=== PATIENT | female | born 1995 | race Caucasian/White ===

== ENCOUNTER 2017-02-20 15:45 | Emergency (ER) | payer MEDICAID ==
[~2017-02-20] VITALS: Ht 157.5 cm; Wt 70.0 kg
[2017-02-20 15:45] VITALS: BP 137/88; PULSE 98; RESP 18; TEMP 98.4; O2SAT 100
[~2017-02-20 15:45] MED LIST: AMOX875 PO
--- NOTE | 2017-02-20 15:55 | PD ---
Physical Exam Time Seen by Provider: 15:54 Narrative 21yo F c/o dysuria, urgency and frequency. Also c/o vaginal dc and foul odor. LMP January 23. Balta contraception use. Denies fever, vomiting. Patient seen in triage. Awaiting bed placement. VS reviewed. Data Data Last Documented VS Vital Signs Date Time Temp Pulse Resp B/P Pulse Ox O2 Delivery O2 Flow Rate FiO2 02/20/17 15:45 98.4 98 18 137/88 100 MDM Supervised Visit with NANCY: Debra Chicas February 20, 2017 15:55
[2017-02-20 16:25] LABS: BLOOD, URINE NEG (NEG); GLUCOSE,URINE NEG (NEG); KETONE, URINE NEG (NEG); NITRITE,URINE NEG (NEG); PH, URINE 7.5 (5.0-8.5); SQUAMOUS EPITHELIAL CELL URINE <1 /hpf (0-5); URINE COLOR LIGHT-YELLOW (YELLW/STRAW)
[2017-02-20 16:34] LABS: COMMENT (UR) CULT NOT INDICATED; CULTURE IF INDICATED CULT NOT INDICATED
== END 2017-02-20 17:30 | disposition left against medical advice (07) ==
LOC: NED 15:45
DX: R30.0 Dysuria (principal); R39.15 Urgency of urination; R35.0 Frequency of micturition; N89.8 Other specified noninflammatory disorders of vagina
CPT/HCPCS: 81001; 84703; 99283

== ENCOUNTER 2017-05-26 18:20 | Emergency (ER) | payer MEDICAID ==
[~2017-05-26] VITALS: Ht 149.9 cm; Wt 68.0 kg
[2017-05-26 18:22] VITALS: BP 105/60; PULSE 82; RESP 20; TEMP 97.3; O2SAT 98
--- NOTE | 2017-05-26 20:07 | PD ---
Physical Exam Date Seen by Provider: May 26, 2017 Time Seen by Provider: 20:04 Narrative 22 y/o female with Hx Opiate abuse and 10 week . Requesting medical clearance for Detox. No Current medical complaints. No suicidal or Homocidal thoughts. Labs ordered. Vital Signs reviewed. Patient is Stable and awaiting Bed Placement. Data Data Last Documented VS Vital Signs Date Time Temp Pulse Resp B/P (MAP) Pulse Ox O2 Delivery O2 Flow Rate FiO2 05/26/17 18:22 97.3 82 20 105/60 (75) 98 Room Air [facility] Medical Record Reviewed: Yes Supervised Visit with NANCY: Yes Condition: Stable Tayo Kiran May 26, 2017 20:07
[2017-05-26] MEDS ORDERED: ZOLO25TA PO (20:48)
[2017-05-26] MEDS ORDERED: DIPH25CA PO (21:42)
--- NOTE | 2017-05-26 21:44 | PD ---
HPI Chief Complaint: Medical Clearance Time Seen by Provider: 20:21 Travel History International Travel<30 days: No Contact w/Intl Traveler<30days: No Traveled to known affect area: No History of Present Illness HPI 22-year-old 2 para 1 last menstruation 12 weeks ago, known to be 10 weeks , arrives stating she wants to undergo opioid detox. She was at [facility] where she offered the same complaint and was advised to come here under the impression that we would admit her for opioid withdrawal. She has been taking Dilaudid and Percocet, inhaling them, for the past 7 months. She has been intermittently abusing opioids for 5 years or so. She has no vaginal bleeding or abdominal pain. She has no thoughts of harming herself and others. She denies drug use otherwise. 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 [facility] Past Medical History Asthma: Yes Tetanus Vaccination: Unknown Influenza Vaccination: No ?: LMP: March : 1 : 1 Social History Alcohol Use: No Tobacco Use: No Substance Use: Yes (PERCOSET, DILAUDID) Allergies-Medications (Allergen,Severity, Reaction): Coded Allergies: No Known Allergies (Unverified , 05/26/17) Reported Meds & Prescriptions Reported Meds & Active Scripts Active Reported Zoloft (Sertraline HCl) 25 Mg Tab 25 Mg PO DAILY Review of Systems Except as stated in HPI: all other systems reviewed are Neg Genitourinary: No: Discharge, Vaginal Bleeding Psychiatric: Positive: Substance Abuse Physical Exam Narrative GENERAL: 22 F, WNWD, pleasant SKIN: Warm and dry. HEAD: Atraumatic. Normocephalic. EYES: Pupils equal and round. No scleral icterus. No injection or drainage. ENT: No nasal bleeding or discharge. Mucous membranes pink and moist. NECK: Trachea midline. No JVD. CARDIOVASCULAR: Regular rate and rhythm. RESPIRATORY: No accessory muscle use. Clear to auscultation. Breath sounds equal bilaterally. GASTROINTESTINAL: Abdomen soft, non-tender, nondistended. Hepatic and splenic margins not palpable. MUSCULOSKELETAL: Extremities without clubbing, cyanosis, or edema. No obvious deformities. NEUROLOGICAL: Awake and alert. No obvious cranial nerve deficits. Motor grossly within normal limits. Five out of 5 muscle strength in the arms and legs. Normal speech. PSYCHIATRIC: Appropriate mood and affect; insight and judgment normal. Data Data Last Documented VS Vital Signs Date Time Temp Pulse Resp B/P (MAP) Pulse Ox O2 Delivery O2 Flow Rate FiO2 05/26/17 18:22 97.3 82 20 105/60 (75) 98 Room Air vs reviewed Orders Orders Complete Blood Count With Diff (05/26/17 20:08) Comprehensive Metabolic Panel (05/26/17 20:08) Urinalysis - C+S If Indicated (05/26/17 20:08) Beta Hcg (Quant/Titer) (05/26/17 20:08) Drug Screen, Random Urine (05/26/17 20:08) Alcohol (Ethanol) (05/26/17 20:08) Labs Laboratory Tests Test 05/26/17 20:50 [facility] Medical Decision Making Medical Screen Exam Complete: Yes Emergency Medical Condition: Yes Medical Record Reviewed: Yes Differential Diagnosis Opioid withdrawal, opiate dependence, intrauterine Narrative Course Unfortunately the resources are unavailable to admit the patient under a diagnoses of opiate withdrawal or opioid detox. We discussed the expected withdrawal process. Local provider for high-risk information provided. Patient verbalized understanding. She has no psychiatric complaints such suicidal ideation or homicidal ideation or hallucination. She simply wants to stop taking opioids. Diagnosis Primary Impression: Opioid dependence Qualified Codes: F11.29 - Opioid dependence with unspecified opioid-induced disorder Additional Impression: Qualified Codes: Z3A.10 - 10 weeks gestation of Referrals: Richa Padilla MD 2 days Additional Instructions: You have a choice when it comes to health care, and we are glad that you chose [facility]. Hopefully, we have met your expectations on today's visit. You are welcome to return to [facility] at any time, as we are committed to meeting the health care needs of our community. Med/Other Pt SpecificInfo: Prescription(s) given Scripts Diphenhydramine (Diphenhydramine) 25 Mg Cap 25 MG PO Q12H Y for WITHDRAWAL, #15 CAP 0 Refills Prov: Parviz Bryan MD 05/26/17 Disposition: 01 DISCHARGE HOME Condition: Stable Parviz Bryan MD May 26, 2017 21:44
[2017-05-26 21:45] LABS: BLOOD, URINE NEG (NEG); GLUCOSE,URINE NEG (NEG); KETONE, URINE NEG (NEG); NITRITE,URINE NEG (NEG); PH, URINE 6.5 (5.0-8.5); SQUAMOUS EPITHELIAL CELL URINE <1 /hpf (0-5); URINE COLOR LIGHT-YELLOW (YELLW/STRAW)
[2017-05-26 21:46] LABS: COMMENT (UR) CULT NOT INDICATED; CULTURE IF INDICATED CULT NOT INDICATED
[2017-05-26 21:48] LABS: AUTOMATED NEUTROPHIL # 8.7 TH/MM3 (1.8-7.7); BASOPHIL % 0.2 % (0.0-2.0); EOSINOPHIL # 0.1 TH/MM3 (0-0.4); EOSINOPHIL % 0.6 % (0.0-4.0); HEMATOCRIT 40.6 % (35.0-46.0); HEMO FLAGS DIFF FINAL; LYMPHOCYTE # 3.1 TH/MM3 (1.0-4.8); MEAN CELL VOLUME 95.1 FL (80.0-100.0); MEAN CORPUSCULAR HEMOGLOBIN 31.8 PG (27.0-34.0); MEAN CORPUSCULAR HGB CONC 33.4 % (32.0-36.0); MONO % 7.4 % (0.0-8.0); NEUT % 67.8 % (16.0-70.0); PLATELET COUNT 291 TH/MM3 (150-450); RED BLOOD COUNT 4.27 MIL/MM3 (4.00-5.30); RED CELL DISTRIBUTION WIDTH 12.6 % (11.6-17.2); WHITE BLOOD COUNT 12.8 TH/MM3 (4.0-11.0)
[2017-05-26 22:08] LABS: ANION GAP 11 MEQ/L (5-15); AST (GOT) 45 U/L (15-37); BICARBONATE 23.2 MEQ/L (21.0-32.0); BLOOD UREA NITROGEN 6 MG/DL (7-18); CHLORIDE 102 MEQ/L (98-107); GLOMERULAR FILTRATION RATE 167 ML/MIN (>89); POTASSIUM 3.5 MEQ/L (3.5-5.1); SODIUM (NA) 136 MEQ/L (136-145)
[2017-05-26 22:10] LABS: ALCOHOL LESS THAN 3 MG/DL (0-5)
[2017-05-26 22:26] LABS: ALKALINE PHOSPHATASE 59 U/L (45-117); ALT (GPT) 67 U/L (10-53); BETA HCG QUANT 81068 MIU/ML (0-5); TOTAL BILIRUBIN ADULT 0.5 MG/DL (0.2-1.0)
== END 2017-05-26 22:03 | disposition home or self-care (01) ==
LOC: NEPD 18:20
DX: O99.321 Drug use complicating pregnancy, first trimester (principal); F11.20 Opioid dependence, uncomplicated; Z3A.10 10 weeks gestation of pregnancy
CPT/HCPCS: 80053; 80307; 81001; 84702; 85025; 99283

== ENCOUNTER 2017-08-06 19:44 | Emergency (ER) | payer MEDICAID ==
[~2017-08-06] VITALS: Ht 149.9 cm; Wt 71.2 kg
[~2017-08-06 19:44] MED LIST changes: -AMOX875 PO; +DIPH25CA PO; +ZOLO25TA PO
[2017-08-06] MEDS ORDERED: FERR325C PO (20:27)
[2017-08-06] MEDS ORDERED: PREN29TA PO (20:27)
[2017-08-06] MEDS ORDERED: ALBU6.7H INH (20:32)
--- NOTE | 2017-08-06 21:23 | PD ---
HPI Chief Complaint Abdominal pain Travel History International Travel<30 Days: No Contact w/Intl Traveler<30Days: No Known Affected Area: No History of Present Illness HPI 22-year-old , IUP at 20.3 care complicated by anemia, depression, substance abuse with opioids and marijuana, [place] acted today Patient presents from the [facility] complaining of sharp pain that is intermittent in nature occurring over the past 2 weeks. There are no aggravating or alleviating factors except change in position helps the pain. She reports that the pain is worse with walking and is stabbing in nature. She reports some discomfort with urination. She denies any leaking of fluid or vaginal bleeding. She reports good movement. She denies any contractions or cramping abdominal pain. Weeks Gestation: 20 Para: 0 : 1 History Past Medical History Narrative Medical Anemia, depression, substance abuse Obstetric History Obstetric History Past Surgical History Narrative Surgical Denies Family History Narrative Family History HTN, CVA, CAD/ME, breast cancer Social History Alcohol Use: No Tobacco Use: No Substance Abuse: Yes Allergies-Medications (Allergen,Severity, Reaction): Coded Allergies: No Known Allergies (Unverified Adverse Reaction, Unknown, 08/06/17) Home Meds Reported Medications Albuterol 6.7 GM Inh (Proventil Hfa 6.7 GM Inh) 90 Mcg/Act Aer, 2 PUFF INH Q4- 6H Y for SHORTNESS OF BREATH, #1 INHALER 0 Refills 08/06/17 Ferrous Sulfate (Iron) 325 Mg Cap, 325 MG PO DAILY for Nutritional Supplement, # 30 TAB 0 Refills 08/06/17 Vit-Iron Carbonyl ( Plus Iron 29-1 mg) 29 Mg Iron-1 Mg Tab, 1 TAB PO DAILY for Nutritional Supplement, #30 TAB 0 Refills 08/06/17 Sertraline (Zoloft) 25 Mg Tab, 25 MG PO DAILY, #30 TAB 0 Refills 05/26/17 Discontinued Scripts Diphenhydramine (Diphenhydramine) 25 Mg Cap, 25 MG PO Q12H Y for WITHDRAWAL, # 15 CAP 0 Refills Prov:Parviz Bryan MD 05/26/17 Review of Systems Except as stated in HPI: all other systems reviewed are Neg (she reports a mild headache right now) Neurologic: Headache Physical Exam Narrative GENERAL: Well-nourished, well-developed patient. SKIN: Warm and dry. HEAD: Normocephalic and atraumatic. EYES: No scleral icterus. No injection or drainage. ENT: No nasal drainage noted. Mucous membranes pink. Airway patent. NECK: Supple, trachea midline. No JVD. CARDIOVASCULAR: Regular rate and rhythm without murmurs, gallops, or rubs. RESPIRATORY: Breath sounds equal bilaterally. No accessory muscle use. BREASTS: Deferred ABDOMEN/GI: Abdomen soft, non-tender, bowel sounds present, no rebound, no guarding Gravid. Abdominal pain is reproducible with palpation in the left lower quadrant and reproduces the sharp stabbing pain GENITOURINARY: External Genitalia: intact and normal in appearance. Grossly normal BUS glands. No vaginal bleeding noted. Grossly normal rugae and no cervical or vaginal masses noted. SVE closed/thick/high/posterior. No uterine contractions noted on toco FHT's: heart tones 150s on Doppler EXTREMITIES: No cyanosis or edema. BACK: Nontender without obvious deformity. NEUROLOGICAL: Awake and alert. Motor and sensory grossly within normal limits. Five out of 5 muscle strength in all muscle groups. Normal speech. Psych: Grossly normal memory and affect Musculoskeletal: Grossly normal range of motion, gait, muscle strength Data Data Orders Orders Vital Signs (Adult) .ON ADMISSION (08/06/17 21:14) ^ Labor Status (08/06/17 21:14) Urinalysis - C+S If Indicated (08/06/17 21:14) MDM Plan Assessment/plan: 1. IUP at 20.3 2. Abdominal pain: No evidence of acute etiology or acute abdomen. No evidence of labor. Abdominal pain is reproducible with lateral uterine motion from the left lower quadrant, consistent with round ligament stretching. Comfort measures given. Discussed the etiology of round ligament pain. All the quick patient's questions were answered. Strict labor precautions 3. No evidence of labor: Strict labor precautions 4. Anemia: Continue iron 5. Depression 6. Substance abuse: Patient Nadya walsh was taken to the [facility] today 7. Follow up with primary OB in 2-3 days or sooner as needed 8. Urinalysis: No evidence of UTI Diagnosis Diagnosis: Primary Impression: 20 weeks gestation of Additional Impression: Round ligament pain Disposition: DISCHARGE HOME Condition: Good BridgerErnestina Edmondson MD Aug 06, 2017 21:23
[2017-08-06 21:25] LABS: BLOOD, URINE NEG (NEG); COMMENT (UR) CULT NOT INDICATED; CULTURE IF INDICATED CULT NOT INDICATED; GLUCOSE,URINE NEG (NEG); KETONE, URINE NEG (NEG); MUCUS URINE FEW /lpf (OCC); NITRITE,URINE NEG (NEG); PH, URINE 6.5 (5.0-8.5); SQUAMOUS EPITHELIAL CELL URINE 2 /hpf (0-5); URINE COLOR YELLOW (YELLW/STRAW)
[2017-08-06] MEDS ORDERED: ACETAMINOPHEN 325 MG TAB PO ONE (21:30)
== END 2017-08-06 21:55 | disposition home or self-care (01) ==
LOC: HOBED 19:44
DX: O26.892 Other specified pregnancy related conditions, second trimester (principal); R10.2 Pelvic and perineal pain; R51 Headache; O99.012 Anemia complicating pregnancy, second trimester; O99.342 Other mental disorders complicating pregnancy, second trimester; F32.9 Major depressive disorder, single episode, unspecified; Z3A.20 20 weeks gestation of pregnancy
CPT/HCPCS: 81001; 99284